=== PATIENT | female | born 1955 | race Caucasian/White ===

== ENCOUNTER 2018-10-11 09:16 | Emergency (ER) | payer BC, OTHER ==
[~2018-10-11] VITALS: Ht 160 cm; Wt 80.3 kg
[2018-10-11] MEDS ORDERED: MECLIZINE CHEWABLE 25 MG TAB PO ONE (10:00)
[2018-10-11] MEDS ORDERED: ONDANSETRON ODT 8 MG PO ONE (10:00)
[2018-10-11] MEDS ORDERED: MECLIZINE CHEWABLE 25 MG TAB ONE (10:14)
[2018-10-11] MEDS ORDERED: ONDANSETRON ODT 8 MG ONE (10:15)
--- NOTE | 2018-10-11 10:48 | NUR ---
Pt reports dizziness when standing for the past week. Nausea and numbess in both hands started this morning. at bedside. Meds and blanket provided for comfort.
[2018-10-11 10:53] LABS: BASOPHILS # (AUTO) 0.04 x10^3/uL (0-0.1); BASOPHILS % (AUTO) 1 % (0-1); EOSINOPHILS # (AUTO) 0.03 x10^3/uL (0-0.4); EOSINOPHILS % (AUTO) 0 % (1-7); LYMPHOCYTES # (AUTO) 1.79 x10^3/uL (1-3.4); LYMPHOCYTES % (AUTO) 21 % (22-44); MD NO; MEAN CORPUSCULAR HGB CONC 34.8 g/dL (32.4-35.8); MEAN CORPUSCULAR VOLUME 94.7 fL (80-100); MEAN PLATELET VOLUME 7.8 fL (7.4-10.4); MONOCYTES # (AUTO) 0.26 x10^3/uL (0.2-0.8); MONOCYTES % (AUTO) 3 % (2-9); NEUTROPHILS # (AUTO) 6.39 x10^3/uL (1.8-6.8); NEUTROPHILS % (AUTO) 75 % (42-75); PLATELET COUNT 318 x10^3/uL (130-400); RED CELL DISTRIBUTION WIDTH 13.4 % (9.6-15.2)
[2018-10-11 11:04] LABS: ALANINE AMINOTRANSFERASE 20 U/L (12-78); ALBUMIN 3.9 g/dL (3.4-5.0); ANION GAP 7 mmol/L (5-15); CALCIUM 9.4 mg/dL (8.5-10.1); CHLORIDE 110 mmol/L (98-107)
[2018-10-11 11:09] LABS: ALKALINE PHOSPHATASE 80 U/L (45-117); BILIRUBIN,TOTAL 0.5 mg/dL (0.2-1.0); CREATININE 0.83 mg/dL (0.55-1.02); TOTAL PROTEIN 7.5 g/dL (6.4-8.2); TROPONIN I < 0.015 ng/mL (0.000-0.045)
[2018-10-11 11:11] LABS: MICROSCOPIC NOT IND
[2018-10-11 11:14] LABS: CULTURE INDICATED? NO
[2018-10-11 11:32] VITALS: BP 150/90
== END 2018-10-11 12:35 | disposition home or self-care (01) ==
LOC: ED 11:11
DX: I10 Essential (primary) hypertension (principal); R42 Dizziness and giddiness; Z91.040 Latex allergy status
CPT/HCPCS: 36415; 80053; 81003; 84484; 85025; 93005; 99284; Q0162

== ENCOUNTER 2018-10-19 22:08 | Inpatient (IN) | payer OTHER ==
[~2018-10-19] VITALS: Ht 160 cm; Wt 58.2 kg
[2018-10-19 23:00] LABS: BASOPHILS # (AUTO) 0.04 x10^3/uL (0-0.1); BASOPHILS % (AUTO) 0 % (0-1); EOSINOPHILS # (AUTO) 0.07 x10^3/uL (0-0.4); EOSINOPHILS % (AUTO) 1 % (1-7); LYMPHOCYTES # (AUTO) 3.18 x10^3/uL (1-3.4); LYMPHOCYTES % (AUTO) 29 % (22-44); MD NO; MEAN CORPUSCULAR HEMOGLOBIN 31.6 pg (27.0-34.8); MEAN CORPUSCULAR HGB CONC 33.3 g/dL (32.4-35.8); MEAN CORPUSCULAR VOLUME 95.1 fL (80-100); MEAN PLATELET VOLUME 7.7 fL (7.4-10.4); MONOCYTES # (AUTO) 0.53 x10^3/uL (0.2-0.8); MONOCYTES % (AUTO) 5 % (2-9); NEUTROPHILS # (AUTO) 7.07 x10^3/uL (1.8-6.8); NEUTROPHILS % (AUTO) 65 % (42-75); PLATELET COUNT 372 x10^3/uL (130-400); RED BLOOD COUNT 5.07 x10^6/uL (3.82-5.3); RED CELL DISTRIBUTION WIDTH 13.4 % (9.6-15.2)
[2018-10-19 23:13] LABS: ALANINE AMINOTRANSFERASE 20 U/L (12-78); ALBUMIN 4.1 g/dL (3.4-5.0); ANION GAP 10 mmol/L (5-15); CALCIUM 9.5 mg/dL (8.5-10.1); CHLORIDE 101 mmol/L (98-107); CREATININE 1.12 mg/dL (0.55-1.02)
[2018-10-19 23:16] LABS: ALKALINE PHOSPHATASE 93 U/L (45-117); BILIRUBIN,TOTAL 0.4 mg/dL (0.2-1.0); TOTAL PROTEIN 8.1 g/dL (6.4-8.2)
[2018-10-19] MEDS ORDERED: POTASSIUM CHLORIDE 20 MEQ TAB.ER.PRT PO ONE (23:30)
[2018-10-19] MEDS ORDERED: POTASSIUM CHLORIDE 40 MEQ in SODIUM CHLORIDE 0.9% 500 ML IV ONE (23:30)
--- NOTE | 2018-10-19 23:35 | NUR ---
FIRST CONTACT WITH PT. PT STATES "I HAVE DIZZINESS WITH HIGH BP FOR ONE WEEK" HX OF BREAST CANCER 1996 AT LEFT SIDE HTN PT C/O DIZZYNESS WELL. PT'S AOX4. RESPS EVEN AND UNLABORED. ALL MONITORS IN PLACE. CALL LIGHT WITHIN REACH.
[2018-10-19] MEDS ORDERED: POTASSIUM CHLORIDE 20 MEQ TAB.ER.PRT ONE (23:38)
--- NOTE | 2018-10-19 23:50 | NUR ---
PT AMB TO BR AND BACK TO ROOM WITH STEADY GAIT. UA SENT.
--- NOTE | 2018-10-19 23:53 | NUR ---
PT MEDICATED PER EMAR. PT TOLERATED WELL.
--- NOTE | 2018-10-20 00:09 | NUR ---
Note sharon in EDM - 10/20/18 at 0024 by VENTURA PT C/O PAIN AROUND IV AREA. THIS RN ASSESSED IN SITE WITH OTHER RN. CONTINUE POTASSIUM DRIP WITH 100/HR RATE NOW.
--- NOTE | 2018-10-20 00:09 | NUR ---
PT C/O PAIN AROUND IV AREA. THIS RN ASSESSED AROUND IV SITE WITH OTHER RN. CONTINUE POTASSIUM DRIP WITH 100/HR RATE NOW.
[2018-10-20 00:13] LABS: MICROSCOPIC AUTO
[2018-10-20 00:14] LABS: CULTURE INDICATED? YES
--- NOTE | 2018-10-20 00:53 | NUR ---
REPORT GIVEN TO NOBLE BEVERLY. ALL QUESTIONS ANSWERED.
[2018-10-20 01:40] VITALS: BP 138/81
[2018-10-20 02:00] VITALS: BP 138/81
[2018-10-20 02:46] LABS: HEMOGLOBIN A1C 5.9 % (4.2-6.3)
[2018-10-20] MEDS ORDERED: hydrALAzine 20 MG/ML, 1ML IV PRN (03:00)
[2018-10-20] MEDS: NS + 20MEQ KCL 1,000 ML IV SCH ×2 (04:17→14:09)
[2018-10-20 07:55] VITALS: BP 117/76
[2018-10-20 12:47] VITALS: BP 120/79
[2018-10-20 12:54] LABS: ANION GAP 9 mmol/L (5-15); CHLORIDE 108 mmol/L (98-107); CREATININE 0.95 mg/dL (0.55-1.02)
[2018-10-20 19:00] VITALS: BP 137/83
[2018-10-20 19:47] VITALS: BP_SYST 131; BP_SYST 140; BP_SYST 147; BP_DIAS 80; BP_DIAS 81; BP_DIAS 82
[2018-10-21] MEDS: NS + 20MEQ KCL 1,000 ML IV SCH (00:09)
[2018-10-21 02:14] VITALS: BP 128/81
[2018-10-21 06:19] LABS: ANION GAP 6 mmol/L (5-15); CALCIUM 8.7 mg/dL (8.5-10.1); CHLORIDE 113 mmol/L (98-107); CHOLESTEROL, TOTAL 203 mg/dL (140-239); CREATININE 0.73 mg/dL (0.55-1.02)
[2018-10-21 06:22] LABS: CHOL/HDL RATIO 3.4; HDL CHOL % 30 % (28-40); HDL CHOLESTEROL (DIRECT) 60 mg/dL (40-60); LDL CHOLESTEROL,CALCULATED 122 mg/dL (54-169); TRIGLYCERIDES 105 mg/dL (50-200); VLDL CHOLESTEROL 21 mg/dL (0-25)
[2018-10-21 06:29] LABS: BASOPHILS # (AUTO) 0.02 x10^3/uL (0-0.1); BASOPHILS % (AUTO) 0 % (0-1); EOSINOPHILS # (AUTO) 0.07 x10^3/uL (0-0.4); EOSINOPHILS % (AUTO) 1 % (1-7); LYMPHOCYTES # (AUTO) 2.92 x10^3/uL (1-3.4); LYMPHOCYTES % (AUTO) 45 % (22-44); MD NO; MEAN CORPUSCULAR HEMOGLOBIN 32.3 pg (27.0-34.8); MEAN CORPUSCULAR HGB CONC 34.1 g/dL (32.4-35.8); MEAN CORPUSCULAR VOLUME 94.5 fL (80-100); MEAN PLATELET VOLUME 7.6 fL (7.4-10.4); MONOCYTES % (AUTO) 6 % (2-9); NEUTROPHILS # (AUTO) 3.09 x10^3/uL (1.8-6.8); NEUTROPHILS % (AUTO) 48 % (42-75); PLATELET COUNT 300 x10^3/uL (130-400); RED CELL DISTRIBUTION WIDTH 13.1 % (9.6-15.2)
[2018-10-21 08:19] VITALS: BP 133/80
[2018-10-21 10:29] VITALS: BP 138/81
[2018-10-21 10:32] VITALS: BP 144/83
[2018-10-21 10:35] VITALS: BP 145/91
[2018-10-21] MEDS ORDERED: ACETAMINOPHEN 325 MG TABLET PO ONE (13:00)
[2018-10-21] MEDS ORDERED: AMLO2.5T5 PO (13:48)
[2018-10-21] MEDS ORDERED: AMLODIPINE 2.5 MG TABLET PO SCH (14:00)
[2018-10-21] MEDS ORDERED: POTA20TA6 PO (14:42)
== END 2018-10-21 15:07 | disposition home or self-care (01) | DRG 641 ==
LOC: ED 23:26 → EDIP 10-20 01:03 → 4WST 10-20 01:29 → DCLOUNGE 10-21 15:02
PROVIDERS: ADMIT Internal Medicine; ATTEND Internal Medicine
DX: E87.6 Hypokalemia (principal); N17.9 Acute kidney failure, unspecified; I10 Essential (primary) hypertension; Z82.49 Family history of ischemic heart disease and other diseases of the circulatory system; Z85.3 Personal history of malignant neoplasm of breast; Z90.49 Acquired absence of other specified parts of digestive tract
CPT/HCPCS: 36415; 70450; 80048; 80053; 80061; 81001; 83036; 83735; 84443; 85025; 87086; 87147; 93005; 93306; 93880; 96365; G0378; J3480; J7040